=== PATIENT | female | born 1995 | race Two or more races ===

== ENCOUNTER 2025-04-16 12:25 | Outpatient (OUT) | payer OTHER, SELFPAY ==
--- OUTSIDE RECORDS SUMMARY | 2025-04-02 15:20 | XMS_ITS | Encounter Summary ---
Author Organization [facility] Address [address] [place] [address] Care Team Providers Care Dish Technician Name Role Phone Unavailable Primary Care Provider Unavailabl e Reason for Visit * Reason Comments Pre-op Visit Encounter Details Date Type Department Care Team (Late st Contact Info) Description 04/02/2025 3:20 PM EDT Consult [facility] [address] [facility] [address] Micky Camarillo, DO [address] [facility] [place] [address] Pre-op examination; Request for sterilization Social History Tobacco Use Types Packs/Day Years Used Date Smoking Tobacco: Never Assessed Comments Unknown Sex and Gender Information Value Date Recorded Sex Assigned at Not on file Legal Sex Female 8:23 PM EDT Gender Identity Female 12/23/2022 8:23 PM EDT Sexual Orientation Not on file documented as of this encounter Last Filed Vital Signs Vital Sign Reading Time Taken Comments Blood Pressure 120/70 04/02/2025 3:11 PM EDT Pulse - - Temperature - - Respiratory Rate - - Oxygen Saturation - - Inhaled Oxygen Concentration - - Weight 54.4 kg (120 lb) 04/02/2025 3:11 PM EDT Height - - Body Mass Index 24.24 08/16/2018 12:00 PM EST documented in this encounter Progress Notes * Ena Padilla - 04/02/2025 3:20 PM EDT Reason for Appointment: Patient ID: Sally Dial is a 30 y.o. female who presents for Pre-op Visit Patient presents today for Pre Op appointment. Patient is scheduled to undergo Da Arlet assisted Bilateral Laparoscopic Salpingectomy on 04-27-[address] Camarillo at [facility]. MEDICATIONS Current Outpatient Medications Medication Instructions Loratadine (Claritin) 10 MG capsule Claritin Multiple Vitamin (multivitamin) tablet 1 tablet, Daily ALLERGIES No Known Allergies PROBLEMS Active Ambulatory Problems Diagnosis Date Noted Sterilization consult 10/18/2024 Resolved Ambulatory Problems Diagnosis Date Noted No Resolved Ambulatory Problems No Additional Past Medical History HISTORY PAST MEDICAL HISTORY SOCIAL HISTORY History reviewed. No pertinent past medical history. Social History Tobacco Use Smoking status: Not on file Smokeless tobacco: Not on file Substance Use Topics Alcohol use: Not on file Drug use: Not on file FAMILY HISTORY No family history on file. SURGICAL HISTORY History reviewed. No pertinent surgical history. REVIEW OF SYSTEMS Review of Systems: Review of Systems Constitutional: Negative. HENT: Negative. Eyes: Negative. Respiratory: Negative. Cardiovascular: Negative. Gastrointestinal: Negative. Genitourinary: Negative. Musculoskeletal: Negative. Skin: Negative. Neurological: Negative. All other systems reviewed and are negative. Hematological: Negative. Endocrine: Negative. Allergic/Immunologic: Negative. OBJECTIVE Objective: Physical Exam Constitutional: Appearance: Normal appearance. She is well-developed. Cardiovascular: Rate and Rhythm: Normal rate and regular rhythm. Pulmonary: Effort: Pulmonary effort is normal. Breath sounds: Normal breath sounds. Abdominal: General: Bowel sounds are normal. There is no distension. Palpations: Abdomen is soft. Tenderness: There is no abdominal tenderness. There is no guarding or rebound. Musculoskeletal: General: No swelling. Normal range of motion. Right lower leg: No edema. Left lower leg: No edema. Neurological: Mental Status: She is alert and oriented to person, place, and time. Skin: General: Skin is warm and dry. Psychiatric: Mood and Affect: Mood normal. Behavior: Behavior normal. Vitals and nursing note reviewed. Exam conducted with a litigation counsel present. Vitals: Estimated body mass index is 24.24 kg/m² as calculated from the following: Height as of 18: 4' 11 . Weight as of this encounter: 120 lb. BP: 120/70 Patient's last menstrual period was 03/27/2025. ASSESSMENT & PLAN ICD-10-CM 1. Pre-op examination Z01.818 2. Request for sterilization Z30.2 Pre Op: Patient is doing well but has desire for sterilization. I have discussed conservative management vs. surgical management with the patient in detail and patient desires surgical management at this time. Patient has voiced understanding that a Bilateral Salpingectomy is considered to be permanent and patient will undergo Da Arlet assisted Bilateral Laparoscopic Salpingectomy on 04-27-25. Surgical consents were signed, mmc was reviewed, and patient is to proceed to [facility]. Follow Up: Patient is to follow up between 1-2 weeks post op to assess proper healing and recovery from procedure. Documented by Margot Upton LPN on behalf of: Micky Camarillo DO documented in this encounter Plan of Treatment Upcoming Encounters Date Type Department Care Team (Late st Contact Info) Description 04/23/2025 11:00 AM EDT Office Visit [facility] [address] [facility] [place] [address] Eda Kraft, PA [address] [place] [address] [place] [address] 05/03/2025 1:30 PM EDT Office Visit [facility] [address] [place] [address] Eda Kraft PA [address] [place] [address] documented as of this encounter Visit Diagnoses Diagnosis Pre-op examination Request for sterilization documented in this encounter
--- OUTSIDE RECORDS SUMMARY | 2025-04-16 12:32 | XMS_ITS | Clinical Summary ---
Author Organization [facility] Address [address] [place] [address] Care Team Providers Care Chief Internal Auditor Name Role Phone Unavailable Primary Care Provider Unavailabl e Allergies No known active allergies Medications Loratadine (Claritin) 10 MG capsule Claritin Active Multiple Vitamin (multivitamin) tablet Take 1 tablet by mouth Daily Active norethindrone- ethinyl estradiol (June10/30) 1-20 MG-MCG tablet 025 Discontinued Active Problems Problem Noted Date Diagnosed Date Sterilization consult 10/18/2024 Encounters Date Type Department Care Team Description 04/02/2025 3:20 PM EDT Consult [address] [place] [address] Micky Camarillo DO Pre-op examination; Request for sterilization 04/02/2025 Bamboo flowsheet [address] [place] [address] Micky Camarillo DO 04/02/2025 Travel from Last 3 Months Social History Tobacco Use Types Packs/Day Years Used Date Smoking Tobacco: Never Assessed Comments Unknown Sex and Gender Information Value Date Recorded Sex Assigned at Not on file Legal Sex Female 8:23 PM EDT Gender Identity Female 12/23/2022 8:23 PM EDT Sexual Orientation Not on file Last Filed Vital Signs Vital Sign Reading Time Taken Comments Blood Pressure 120/70 04/02/2025 3:11 PM EDT Pulse - - Temperature - - Respiratory Rate - - Oxygen Saturation - - Inhaled Oxygen Concentration - - Weight 54.4 kg (120 lb) 04/02/2025 3:11 PM EDT Height 149.9 cm (4' 11 ) 08/16/2018 12:00 PM EST Body Mass Index 24.24 08/16/2018 12:00 PM EST Plan of Treatment Upcoming Encounters Date Type Department Care Team (Late st Contact Info) Description 04/23/2025 11:00 AM EDT Office Visit [facility] [address] [facility] [address] Eda Kraft PA [address] [place] [address] Dr [place], [facility] 05/03/2025 1:30 PM EDT Office Visit [facility] [address] [facility] [phone] Eda Kraft PA [address] [place] [address] [place] [address] Health Maintenance Due Date Last Done Comments Influenza Vaccine (#1) 2025 Insurance [employer]
--- OUTSIDE RECORDS SUMMARY | 2025-04-16 12:32 | XMS_ITS | Encounter Summary ---
Author Organization [facility] Address [address] [place] [address] Care Team Providers Care Fuel Storage Technician Name Role Phone Unavailable Primary Care Provider Unavailabl e Encounter Details Date Type Department Care Team (Latest Contact Info) Description 04/02/2025 Travel Social History Tobacco Use Types Packs/Day Years Used Date Smoking Tobacco: Never Assessed Comments Unknown Sex and Gender Information Value Date Recorded Sex Assigned at Not on file Legal Sex Female 8:23 PM EDT Gender Identity Female 12/23/2022 8:23 PM EDT Sexual Orientation Not on file documented as of this encounter Plan of Treatment Upcoming Encounters Date Type Department Care Team (Late st Contact Info) Description 04/23/2025 11:00 AM EDT Office Visit [facility] OB [address] [facility] [place] [phone] Eda Kraft, PA [address] [place] [address] Dr [place], [facility] [address] 05/03/2025 1:30 PM EDT Office Visit [facility] OB [address] [facility] [place] [phone] Eda Kraft, PA [address] [place] [address] [place], [place] [id number] documented as of this encounter Visit Diagnoses Not on filedocumented in this encounter
--- OUTSIDE RECORDS SUMMARY | 2025-04-16 12:32 | XMS_ITS | Encounter Summary ---
Author Organization [facility] Address [address] [place] [address] Care Team Providers Care Artisan Plasterer Name Role Phone Unavailable Primary Care Provider Unavailabl e Encounter Details Date Type Department Care Team (Late Contact Info) Description 11/14/2024 Abstract [facility] [address] [place] [address] Micky Camarillo [address] [place], [facility] Social History Tobacco Use Types Packs/Day Years Used Date Smoking Tobacco: Never Assessed Comments Unknown Sex and Gender Information Value Date Recorded Sex Assigned at Not on file Legal Sex Female 8:23 PM EDT Gender Identity Female 12/23/2022 8:23 PM EDT Sexual Orientation Not on file documented as of this encounter Plan of Treatment Upcoming Encounters Date Type Department Care Team (Late Contact Info) Description 04/23/2025 11:00 AM EDT Office Visit [facility] [address] [place] [address] Eda Kraft PA [address] [place] [address] [place] [address] 05/03/2025 1:30 PM EDT Office Visit [facility] [address] [place] [address] Eda Kraft, PA [address] [place] [address] Dr [place], [facility]11 documented as of this encounter Visit Diagnoses Not on filedocumented in this encounter
--- OUTSIDE RECORDS SUMMARY | 2025-04-16 12:32 | XMS_ITS | Encounter Summary ---
Author Organization [facility] Address [address] [place] [address] Care Team Providers Care Fleshing Machine Operator Name Role Phone Unavailable Primary Care Provider Unavailabl e Encounter Details Date Type Department Care Team (Late Contact Info) Description 04/02/2025 Bamboo flowsheet [facility] OB [address] [place] [address] [place] [address] Micky Camarillo [address] [place], [facility]11 Social History Tobacco Use Types Packs/Day Years [...] 04/23/2025 11:00 AM EDT Office Visit [facility] [address] [place] [address] [place] [address] Eda Kraft PA [address] [place] [address] Dr [place], [facility]11 05/03/2025 1:30 PM EDT Office Visit [facility] [address] [place] [address] [place] [address] Eda Kraft, PA [address] [place] [address] Dr [place], [facility]11 documented as of this encounter Visit Diagnoses Not on filedocumented in this encounter
--- NOTE | 2025-04-16 13:09 | XR_ITS ---
The [address] [address] Patient Name: MADHAV PRIETO MRN: [id number] date: 1995 Sex: F Assigned Patient Location: [facility] Current Patient Location: [facility] Accession/Order Number: [id number] Exam Date: 04/16/2025 16:21 Report Date: 04/16/2025 16:22 At the request of: CHRISTY GOLDBERG DO Procedure: XR chest 2V PA AND LATERAL CHEST: CLINICAL HISTORY: Pre Op COMPARISON: None FINDINGS: Unremarkable cardiomediastinal. Lungs are clear. No effusion or pneumothorax. XR/XR chest 2V IMPRESSION: NO ACUTE CARDIOPULMONARY ABNORMALITY. Impression dictated by: Raffy Maki M.D. 04/16/2025 4:22 PM Dictation Location: [place] [address] Electronically authenticated by: [id number] Y Date: 04/16/2025 16:22
== END 2025-04-16 12:26 | disposition home or self-care (01) ==
LOC: PST 12:30
PROVIDERS: PCP Internal Medicine; Visit Provider Obstetrics & Gynecology
DX: Z01.812 Encounter for preprocedural laboratory examination (principal)
CPT/HCPCS: 71046

== ENCOUNTER 2025-04-23 12:34 | Outpatient (REF) | payer OTHER, SELFPAY ==
[2025-04-25 14:08] LABS: Age Gdln ACOG Testing Note (.); IGP, rfx Aptima HPV ASCU Note (.)
== END 2025-04-23 12:35 | disposition home or self-care (01) ==
LOC: LAB 12:34
PROVIDERS: PCP Internal Medicine; Visit Provider Physician Assistant
DX: Z01.419 Encounter for gynecological examination (general) (routine) without abnormal findings (principal)
CPT/HCPCS: 88175

== ENCOUNTER 2025-04-27 06:08 | Day surgery (SDC) | payer OTHER, SELFPAY ==
[2025-04-16 13:17] VITALS: BP 136/79; PULSE 92; TEMP 36.5; O2SAT 100; BMI 24.2
[2025-04-27] VITALS (10 sets, daily range): BP systolic 92–129; BP diastolic 44–82; PULSE 55–84; TEMP 36.2–36.3; O2SAT 97–100; BMI 23.8
[2025-04-27 06:23] LABS: Hematocrit 39.0 % (36.0-48.0); Hemoglobin 13.4 g/dL (12.0-16.0); Mean Corpuscular HGB Conc 34.4 g/dL (29.9-35.2); Mean Corpuscular Hemoglobin 32.2 pg (26.7-34.0); Mean Corpuscular Volume 93.8 fL (81.0-99.0); Platelet Count 134 10^3/uL (150-450); Red Blood Count 4.16 10^6/uL (4.20-5.40); White Blood Count 5.8 10^3/uL (4.0-11.0)
[2025-04-27 06:46] LABS: Basophils Abs Manual 0.05 10^3/uL (0.00-0.10); Basophils Percent Manual 1.0 % (0.2-2.0); Eosinophils Absolute Manual 0.11 10^3/uL (0.00-0.70); Eosinophils Percent Manual 2.0 % (0.9-7.0); Lymphocytes Absolute Manual 2.72 10^3/uL (1.20-3.80); Lymphocytes Percent Manual 47.0 % (20.5-60.0); Monocytes Absolute Manual 0.75 10^3/uL (0.30-0.80); Monocytes Percent Manual 13.0 % (1.7-12.0); Segmented Neut Absolute Manual 2.14 10^3/uL (1.4-6.5); Segmented Neutrophils % Manual 37.0 (43.0-75.0)
--- NOTE | 2025-04-27 08:17 | P.ON_ITS ---
Brief Operative Note Date of procedure: 04/27/25 Pre-op diagnosis general: desires permanent sterilization Post-op diagnosis: same as pre-op Procedure: NAME OF PROCEDURE: robotic assisted bilateral laparoscopic salpingectomy PROCEDURE: The patient was taken back to the Operating Room where she was given general anesthesia without difficulty. She was then prepped and draped in the normal sterile fashion after being placed in a dorsal lithotomy position. A wet sponge stick was placed into the patient's vagina. Attention was then turned to the patient's abdomen, where a scalpel was used to make a small infraumbilical incision. The S retractors were then used to dissect the underlying layers until the fascia could be seen. The fascia was then grasped with Parveen clamps and tented up. A knife was then used to make a small incision to the fascia. The muscle was identified, at that time two sutures of #0 Vicryl on a GI needle was then used and placed through the fascia. the peritoneum was then identified and entered bluntly. The 10-4 Nehemiah was then placed into the patient's abdomen. This was confirmed with direct visualization of the bowel, using the laparoscope. The patient's abdomen was then insufflated using approximately 4 liters of CO2 gas. Survey of the patient's abdomen demonstrated ovaries were normal in appearance as well as both tubes and uterus. A second and third rt and lt lateral robotic ports which were 8 mm in size, was then placed after the skin incision was made under direct visualization . the robotic arms were engaged. The patient's tube on the patient's right side was identified and tented up using a grasper, the ligasure apparatus was then used to come across the mesosalpingx from the fimbriated end to the insertion site at the uterus, the tube was then amputated and removed in its entirety. This was done on the contralateral side. The tubes were the removed from the patients abdomen. Excellent hemostasis was noted. The lateral ports were then moved under direct visualization with excellent hemostasis. All instruments were removed from the patient's abdomen. The fascia was closed using the #0 Vicryl on GI needle. The skin was closed using 4-0 Vicryl subcuticularly. All instruments were removed from the patient's vagina as well. The patient was taken out of the dorsal lithotomy position and placed in the supine position and taken to recovery in stable condition. Sponge, lap and needle counts were correct x2. Anesthesia: LACIA Surgeon: Micky Camarillo Switchboard Wirer: Dori Bishop Estimated blood loss (mL): 15 Pathology: other (tubes) Condition: stable Disposition: PACU Urinary Catheter Management Urinary Catheter Management Urethral: Cath placed during this visit: no
--- NOTE | 2025-04-27 11:23 | PC.NURSE ---
Up to bathroom and voids clear yellow without difficulty
== END 2025-04-27 11:15 | disposition home or self-care (01) ==
LOC: SURGOUT 06:08
PROVIDERS: PCP Internal Medicine; Visit Provider Obstetrics & Gynecology
PROC: (CPT 840; principal; 2025-04-27 07:30)
DX: Z30.2 Encounter for sterilization (principal); F17.290 Nicotine dependence, other tobacco product, uncomplicated; J45.909 Unspecified asthma, uncomplicated; F41.9 Anxiety disorder, unspecified
CPT/HCPCS: 58661; 36415; 84702; 85007; 85027; 88302; J0131; J1100; J1171; J1200; J1885; J2405; J2704